=== PATIENT | female | born 1960 | race Caucasian/White ===

== ENCOUNTER → 2016-10-12 | Outpatient (CLI) | payer BC ==
--- NOTE | 2016-10-12 17:04 | RAD ---
DATE: 10/12/2016 EXAM: MAMMO LORI SCREENING BILATERAL HISTORY: Routine screening COMPARISON: 09/07/2015 This study was interpreted with the benefit of Computerized Aided Detection (CAD). The breast parenchyma is heterogeneously dense, which could reduce sensitivity of mammography. Breast parenchyma level C. FINDINGS: Routine 2-D and implant exclusion views of both breasts were obtained. 3-D implant exclusion tomosynthesis images were also obtained. The fibroglandular tissues in both breasts are largely unchanged. There is a small 5-6 mm nodular opacity noted far posteriorly in the midportion of the right breast on the implant exclusion cc view and the CC tomosynthesis image 35. This was not visible on the previous study, however, that may have been due to the fact that less of the posterior aspect of the breast was included on the prior study. No other new or enlarging breast densities are seen. There are capsular calcifications along the margins of the implants. No suspicious breast microcalcifications are seen. IMPRESSION: Small nodule in the posterior aspect of the mid right breast as described above. Sonographic evaluation is suggested. BI-RADS CATEGORY: 0 INCOMPLETE: NEEDS ADDITIONAL IMAGING EVALUATION AND/OR PRIOR MAMMOGRAMS FOR COMPARISON. RECOMMENDED FOLLOW-UP: ADD ADDITIONAL IMAGING PQRS compliance statement: Patient information was entered into a reminder system with a target due date for the next mammogram. Mammography is a sensitive method for finding small breast cancers, but it does not detect them all and is not a substitute for careful clinical examination. A negative mammogram does not negate a clinically suspicious finding and should not result in delay in biopsying a clinically suspicious abnormality. "Our facility is accredited by the [employer] Mammography Program."
== END | disposition home or self-care (01) ==
LOC: MAMMO 15:09
PROVIDERS: ATTEND Physician Assistant Medical
DX: Z12.31 Encounter for screening mammogram for malignant neoplasm of breast (principal); N63 Unspecified lump in breast; Z01.419 Encounter for gynecological examination (general) (routine) without abnormal findings
CPT/HCPCS: 77063; G0202; 77067

== ENCOUNTER → 2016-10-18 | Outpatient (CLI) | payer BC ==
--- NOTE | 2016-10-18 15:59 | RAD ---
EXAM: BREAST RIGHT HISTORY: Possible asymmetry within the right breast on screening examination. COMPARISON: Multiple comparisons including 10/12/2016 and 06/18/2013 Focused ultrasound images were obtained through the right breast. FINDINGS: Focused ultrasound was obtained through the right breast in order to attempt to localize the possible asymmetry seen on screening mammogram. Glandular tissue as well as fatty tissue and the patient's chest wall musculature is seen without a definite mass or fluid collection. IMPRESSION: No definite mass or drainable fluid collection is seen on focused ultrasound of right breast. Repeat breast deepthi synthesis could be obtained in 6 months to ensure no increase in the possible asymmetry seen within the right breast. This may have been partially visualized in 2013 but a follow-up could be helpful to ensure no growth. BI-RADS CATEGORY: 3 PROBABLE BENIGN-SHORT TERM F/U RECOMMENDED FOLLOW-UP: 6M 6 MONTH FOLLOW-UP PQRS compliance statement: Patient information was entered into a reminder system with a target due date for the next mammogram. Mammography is a sensitive method for finding small breast cancers, but it does not detect them all and is not a substitute for careful clinical examination. A negative mammogram does not negate a clinically suspicious finding and should not result in delay in biopsying a clinically suspicious abnormality. "Our facility is accredited by the [employer] Mammography Program."
== END | disposition home or self-care (01) ==
LOC: US 14:45
PROVIDERS: ATTEND Physician Assistant Medical
DX: R92.8 Other abnormal and inconclusive findings on diagnostic imaging of breast (principal)
CPT/HCPCS: 76641

== ENCOUNTER 2017-09-05 22:28 | Inpatient (IN) | payer BC ==
[~2017-09-05] VITALS: Ht 167.6 cm; Wt 88.0 kg
[2017-09-05] MEDS ORDERED: IV NORMAL SALINE 1,000ML 1,000 ML IV SCH (22:30)
--- NOTE | 2017-09-05 22:31 | ED.ADGEN ---
Past History Past Medical History: Hypertension, Other Past Surgical History: Other Adult General Chief Complaint Chief Complaint ".. I had some bad.. chest discomfort... dull here on Lt... I call the ambulance about 9:30. .. but I refused transport.. because I began to feel beter.. but my BP was 200's over 90.. but discomfort came back... so I came in...." I had Mitral prolapse... and did have a ASD and ASD repair as child... 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 who presents with above hx and complaints . Pt. rated the discomfort original as 10. Pt. does have hx of HTN. and Pigment Glaucoma . Pt. follows with Ricarda Liu. No recent changes in meds. Has not followed with Cardiology for years. Review of Systems Review of Systems Constitutional: Denies fever or chills [] Eyes: Denies change in visual acuity, redness, or eye pain [] HENT: Denies nasal congestion or sore throat [] Respiratory: Denies cough or shortness of breath [] Cardiovascular: No additional information not addressed in HPI [] GI: Denies abdominal pain, nausea, vomiting, bloody stools or diarrhea [] : Denies dysuria or hematuria [] Musculoskeletal: Denies back pain or joint pain [] Integument: Denies rash or skin lesions [] Neurologic: Denies headache, focal weakness or sensory changes [] Endocrine: Denies polyuria or polydipsia [] All other systems were reviewed and found to be within normal limits, except as documented in this note. Family History Family History Non-contributory Current Medications Current Medications Current Medications Medications (Trade) Dose Ordered Sig/Omaira Start Time Stop Time Status Last Admin Dose Admin Aspirin (Children'S Aspirin) 324 mg 1X ONCE 09/05/17 23:00 09/05/17 23:11 DC 09/05/17 23:27 324 MG Sodium Chloride 1,000 ml @ 100 mls/hr Q10H 09/05/17 22:30 09/06/17 08:29 09/05/17 23:32 100 MLS/HR Allergies Allergies Physical Exam Physical Exam Constitutional: Moderately acute distress, non-toxic appearance. [] HENT: Normocephalic, atraumatic, bilateral external ears normal, oropharynx moist, no oral exudates, nose normal. [] Eyes: PERRLA, EOMI, conjunctiva normal, no discharge. [] Neck: Normal range of motion, no tenderness, supple, no stridor. [] Cardiovascular:Heart rate regular rhythm, mitral murmur [] Lungs & Thorax: Bilateral breath sounds clear to auscultation []Old scar. Abdomen: Bowel sounds normal, soft, no tenderness, no masses, no pulsatile masses. [] Skin: Warm, dry, no erythema, no rash. [] Back: No tenderness, no CVA tenderness. [] Extremities: No tenderness, no cyanosis, no clubbing, ROM intact, no edema. [] No specific cording noted. Neurologic: Alert and oriented X 3, normal motor function, normal sensory function, no focal deficits noted. [] Psychologic: Affect anxious, judgement normal, mood normal. [] Current Patient Data Vital Signs Vital Signs Date Time Temp Pulse Resp B/P (MAP) Pulse Ox O2 Delivery O2 Flow Rate FiO2 09/05/17 22:33 98.5 64 20 100 Lab Results Laboratory Tests Test 09/05/17 22:45 09/05/17 22:55 Urine Collection Type Unknown Urine Color Yellow Urine Clarity Clear Urine pH 7.0 Urine Specific [place] 1.015 Urine Protein Neg (NEG-TRACE) Urine Glucose (UA) Neg mg/dL (NEG) Urine Ketones (Stick) Neg mg/dL (NEG) Urine Blood Small (NEG) Urine Nitrite Neg (NEG) Urine Bilirubin Neg (NEG) Urine Urobilinogen Dipstick 0.2 mg/dL (0.2 mg/dL) Urine Leukocyte Esterase Neg (NEG) Urine RBC 1-2 /HPF (0-2) Urine WBC Occ /HPF (0-4) Urine Squamous Epithelial Cells Occ /LPF Urine Bacteria 0 /HPF (0-FEW) Urine Opiates Screen Neg (NEG) Urine Methadone Screen Neg (NEG) Urine Barbiturates Neg (NEG) Urine Phencyclidine Screen Neg (NEG) Urine Amphetamine/Methamphetamine Neg (NEG) Urine Benzodiazepines Screen Neg (NEG) Urine Cocaine Screen Neg (NEG) Urine Cannabinoids Screen Neg (NEG) Urine Ethyl Alcohol Neg (NEG) White Blood Count 6.7 x10^3/uL (4.0-11.0) Red Blood Count 4.08 x10^6/uL (3.50-5.40) Hemoglobin 13.1 g/dL (12.0-15.5) Hematocrit 39.3 % (36.0-47.0) Mean Corpuscular Volume 96 fL (79-100) Mean Corpuscular Hemoglobin 32 pg (25-35) Mean Corpuscular Hemoglobin Concent 34 g/dL (31-37) Red Cell Distribution Width 13.0 % (11.5-14.5) Platelet Count 275 x10^3/uL (140-400) Neutrophils (%) (Auto) 53 % (31-73) Lymphocytes (%) (Auto) 37 % (24-48) Monocytes (%) (Auto) 8 % (0-9) Eosinophils (%) (Auto) 2 % (0-3) Basophils (%) (Auto) 0 % (0-3) Neutrophils # (Auto) 3.5 x10^3uL (1.8-7.7) Lymphocytes # (Auto) 2.5 x10^3/uL (1.0-4.8) Monocytes # (Auto) 0.5 x10^3/uL (0.0-1.1) Eosinophils # (Auto) 0.1 x10^3/uL (0.0-0.7) Basophils # (Auto) 0.0 x10^3/uL (0.0-0.2) Prothrombin Time 9.8 SEC (9.4-11.4) Prothrombin Time INR 1.0 (0.9-1.1) PTT 25 SEC (23-33) D-Dimer (Shaniqua) 0.64 mg/L (0.00-0.50) H Sodium Level 139 mmol/L (136-145) Potassium Level 4.2 mmol/L (3.5-5.1) Chloride Level 104 mmol/L (98-107) Carbon Dioxide Level 26 mmol/L (21-32) Anion Gap 9 (6-14) Blood Urea Nitrogen 15 mg/dL (7-20) Creatinine 0.7 mg/dL (0.6-1.0) Estimated GFR (Cockcroft-Gault) 86.2 Glucose Level 102 mg/dL (70-99) H Calcium Level 8.4 mg/dL (8.5-10.1) L Magnesium Level 2.2 mg/dL (1.8-2.4) Total Bilirubin 0.3 mg/dL (0.2-1.0) Direct Bilirubin < 0.1 mg/dL (0.0-0.2) Aspartate Amino Transferase (AST) 27 U/L (15-37) Alanine Aminotransferase (ALT) 21 U/L (14-59) Alkaline Phosphatase 85 U/L (46-116) Creatine Kinase 102 U/L (26-192) Creatine Kinase MB (Mass) 0.7 ng/mL (0.0-3.6) Creatine Kinase MB Relative Index 0.7 % (0-4) Troponin I Quantitative < 0.017 ng/mL (0-0.055) XA-Ndy-F-Type Natriuretic Peptide 423 pg/mL (0-124) H Total Protein 7.3 g/dL (6.4-8.2) Albumin 3.5 g/dL (3.4-5.0) Lipase 461 U/L (73-393) H EKG EKG My interpretation of EKG shows a sinus rhythm at 64. There is some nonspecific T -wave abnormalities. No findings of acute STEMI with contralateral changes.[] Radiology/Procedures Radiology/Procedures My interpretation of chest x-ray shows somewhat globular heart. But no obvious acute cardiopulmonary findings. No free air under the diaphragm.[] Course & Med Decision Making Course & Med Decision Making Pertinent Labs and Imaging studies reviewed. (See chart for details). Discussed presentation, testing and tx. plan with Dr. Padilla- will admit for further work up and cardiology consult. [] Final Impression Final Impression 1. Chest pain 2. Accelerated hypertension 3. History of mitral valve prolapse,ASD and VSD repairs.[] 4. Elevated lipase. 5. Elevated D-dimer Dragon Disclaimer Dragon Disclaimer This electronic medical record was generated, in whole or in part, using a voice recognition dictation system. RENAY RODARTE MD Sep 05, 2017 22:31
[2017-09-05] MEDS ORDERED: ASPIRIN 81 MG TAB.CHEW PO ONE (23:00)
[2017-09-05] MEDS ORDERED: NITROGLYCERIN OINT 1 GM PACKET. TP ONE (23:15)
[2017-09-05] MEDS ORDERED: ENOXAPARIN ** NOTE DOSE ** SYRINGE SQ ONE (23:15)
--- NOTE | 2017-09-05 23:25 | RAD ---
EXAM: CHEST 1 VIEW. HISTORY: Left chest pain. COMPARISON: May 21, 2007. FINDINGS: A frontal view of the chest is obtained. There are no confluent infiltrates. There is no pneumothorax or pleural effusion. The heart is not enlarged. IMPRESSION: 1. No confluent infiltrates. Electronically signed by: Brigitte Nova MD (09/05/2017 11:21 PM) [facility]
[2017-09-05 23:33] LABS: BASO % 0 % (0-3); EOS # 0.1 x10^3/uL (0.0-0.7); EOS % 2 % (0-3); HEMATOCRIT 39.3 % (36.0-47.0); HEMOGLOBIN 13.1 g/dL (12.0-15.5); LYMPH # 2.5 x10^3/uL (1.0-4.8); LYMPH % 37 % (24-48); MEAN CORPUSCULAR HEMOGLOBIN 32 pg (25-35); MEAN CORPUSCULAR HGB CONC 34 g/dL (31-37); MEAN CORPUSCULAR VOLUME 96 fL (79-100); MONO # 0.5 x10^3/uL (0.0-1.1); MONO % 8 % (0-9); NEUT # 3.5 x10^3uL (1.8-7.7); NEUT % 53 % (31-73); PLATELET COUNT 275 x10^3/uL (140-400); RED BLOOD COUNT 4.08 x10^6/uL (3.50-5.40); WHITE BLOOD COUNT 6.7 x10^3/uL (4.0-11.0)
[2017-09-05 23:44] LABS: BILIRUBIN,URINE NEG (NEG); CLARITY,URINE CLEAR; COLOR,URINE YELLOW; GLUCOSE,URINE NEG (NEG); NITRITE,URINE NEG (NEG); UROBILINOGEN,URINE 0.2 mg/dL (0.2 mg/dL)
[2017-09-05 23:45] LABS: BACTERIA,URINE 0 /HPF (0-FEW); SQUAMOUS EPITHELIAL CELL,UR OCC /LPF; WBC,URINE OCC /HPF (0-4)
[2017-09-05 23:54] LABS: AMPHETAMINE/METHAMPHETAMINE NEG (NEG); BARBITURATES NEG (NEG); BENZODIAZEPINES NEG (NEG); CANNABINOIDS NEG (NEG); COCAINE NEG (NEG); METHADONE NEG (NEG); OPIATES NEG (NEG); PHENCYCLIDINE NEG (NEG)
[2017-09-06] MEDS ORDERED: MORPHINE SULFATE 4 MG/ML DISP.SYRIN. IV ONE
[2017-09-06 00:03] LABS: ALBUMIN 3.5 g/dL (3.4-5.0); ALK PHOS 85 U/L (46-116); ALT (SGPT) 21 U/L (14-59); ANION GAP 9 (6-14); AST (SGOT) 27 U/L (15-37); BLOOD UREA NITROGEN 15 mg/dL (7-20); CALCIUM 8.4 mg/dL (8.5-10.1); CARBON DIOXIDE 26 mmol/L (21-32); CHLORIDE 104 mmol/L (98-107); CREATININE 0.7 mg/dL (0.6-1.0); GFR 86.2; GLUCOSE 102 mg/dL (70-99); LIPASE 461 U/L (73-393); MAGNESIUM 2.2 mg/dL (1.8-2.4); POTASSIUM 4.2 mmol/L (3.5-5.1); SODIUM 139 mmol/L (136-145); TOTAL BILIRUBIN 0.3 mg/dL (0.2-1.0); TOTAL PROTEIN 7.3 g/dL (6.4-8.2)
[2017-09-06 00:04] LABS: DIRECT BILIRUBIN < 0.1 mg/dL (0.0-0.2)
[2017-09-06] MEDS ORDERED: MORPHINE SULFATE 4 MG/ML DISP.SYRIN. ONE (00:04)
--- NOTE | 2017-09-06 00:28 | EKG ---
[address] [address] Test Date: 2017-09-05 Test Time: 22:37:47 Pat Name: KVNG DALY Department: Room: Gender: F [employer]: : 1960 Requested By: RENAY RODARTE Order Number: [id number] Reading MD: Measurements Intervals [place] Rate: 64 P: 90 MT: 152 QRS: 8 QRSD: 86 T: 52 QT: 400 QTc: 417 Interpretive Statements SINUS RHYTHM T ABNORMALITY IN HIGH LATERAL LEADS ABNORMAL ECG RI6.01 No previous ECG available for comparison
--- NOTE | 2017-09-06 01:00 | NUR ---
ADMISSION: The patient, KVNG DALY, 56 y/o, F admitted by ASHLIE WEEMS MD, was given written information regarding hospital policies, unit procedures and contact persons. Pt arrived to room 121 via gurney, accompanied by [facility], nursing sup, and . Pt able to ambulate from gurney to bed, steady gait noted. Dx:CP, accelerated HTN, elevated D-dimer, elevated lipase. Pt reports she was driving to work at approx. 2140 when she developed sudden onset of pain/pressure under left breast that radiates to LLQ of abdomen, was accompanied by nausea and increased salivation. She states that she called 911 and on scene her BP was severely elevated and she refused transport to ER, and that EMS recommended she go to the ER, so she came POV. Pt with Hx of mitral valve prolapse, ASD and VSD repairs as a child. Pt has not followed with a order detailer recently, but reports having an ECHO and stress test done approx. 5 years ago. Will consult [facility] cardiology in AM. Pt placed on telemetry, showing SR with HR in the 80's. BP stable. Pt denies any current pain or discomfort. Oriented to unit and room. POC discussed, patient and V/U. Call light in reach. Will monitor. Valuables were checked and logged. Left in room with patient.
[2017-09-06 01:05] VITALS: BP 121/65
[2017-09-06] MEDS ORDERED: MULT1TAB52 PO (01:57)
[2017-09-06] MEDS ORDERED: DOCO1CAP2 PO (01:57)
[2017-09-06] MEDS ORDERED: LATA2.5D3 OU (01:57)
[2017-09-06] MEDS ORDERED: ATEN50TA PO (01:57)
[2017-09-06] MEDS ORDERED: ASPI81TA50 PO (01:57)
[2017-09-06] MEDS: MORPHINE SULFATE 4 MG/ML DISP.SYRIN. IV PRN ×2 (04:03→20:33)
[2017-09-06 05:19] VITALS: BP 139/76
--- NOTE | 2017-09-06 05:24 | NUR ---
Pt awoke c/o nausea and LUQ pain. Began retching, clear emesis. Given prn zofran with minimal relief. Dr. Padilla notified of pt status, new orders received.
[2017-09-06] MEDS ORDERED: ONDANSETRON ODT 4 MG TAB.RAPDIS PO PRN (05:30)
[2017-09-06] MEDS ORDERED: PROMETHAZINE 12.5 MG in IV NORMAL SALINE 50ML 50 ML IV PRN (05:30)
[2017-09-06] MEDS ORDERED: IOHEXOL 300 MG/ML 75 ML VIAL. IV ONE (05:45)
[2017-09-06] MEDS ORDERED: CONTRAST GIVEN MC PRN (05:45)
[2017-09-06] MEDS: NITROGLYCERIN OINT 1 GM PACKET. TP SCH ×3 (05:53→20:34)
--- NOTE | 2017-09-06 06:15 | NUR ---
Cardiology consult called to Dr. St. L/M with answering service, awaiting call back.
--- NOTE | 2017-09-06 06:50 | RAD ---
Indication: Chest pressure. Elevated d-dimer. Upper abdominal pain with nausea and vomiting TECHNIQUE: CT angiogram chest and CT abdomen pelvis in portal venous phase. COMPARISON: None FINDINGS: CT chest: Diagnostic quality PE study. There are no central, segmental or subsegmental filling defects in the pulmonary arteries. Bilateral breast implants. Heart is normal in size. No pericardial or pleural effusion. No chest adenopathy. Lungs are clear. No suspicious bony lesions in the chest. CT abdomen pelvis: Liver, spleen, gallbladder, pancreas, adrenals are within normal limits. 1 cm low attenuating lesion is seen in the right kidney also seen on previous study from 2007 suggesting simple cyst. Obstructing 4 mm left proximal ureteral stone with mild hydroureteronephrosis. No enlarged retroperitoneal or pelvic adenopathy. No bowel obstruction. Normal appendix. Urinary bladder within normal limits. Anteverted uterus. No free pelvic fluid or ascites. No suspicious bony lesion. IMPRESSION: 1. No PE. No pneumonia. 2. Obstructing 4 mm stone in the left proximal ureter causing mild left-sided hydroureteronephrosis. Electronically signed by: Ho Sumner DO (09/06/2017 6:46 AM) [facility]
[2017-09-06] MEDS ORDERED: ASPIRIN 81 MG TAB.CHEW PO SCH (09:00)
[2017-09-06] MEDS ORDERED: ENOXAPARIN ** NOTE DOSE ** SYRINGE SQ SCH (09:00)
[2017-09-06] MEDS: FAMOTIDINE 20 MG TABLET PO SCH ×2 (09:06→20:33)
--- NOTE | 2017-09-06 10:12 | PDOC2 ---
CONSULT Date of Admission DATE: 09/06/17 TIME: 10:09 Reason for Consult: cp Problem List Problems Medical Problems: (1) Chest pain Status: Acute History of Present Illness Ms Burns is a 56 year old female who presented to the ED with complaints of chest pain. She reports that while driving to work last PM she began to have a feeling of abdominal "bloating". This was followed with epigastric pressure and left chest pressure below her breast. She reports excess salivation with nausea but no vomiting and finally a sharp left lower quadrant abdominal pain. She decided to go home and lay down but when the discomfort did not resolve, became uneasy and called EMS. EMS apparently examined her and found her blood pressure was >200 mmHg systolic and advised transport to the hospital. She declined but her convinced her to go to ED for evaluation anyway. She was driven in by her . She wan found to have no acute abnormalities on EKG and her initial cardiac enzymes were normal. She was also noted to have a 4mm obstructing left ureteral stone by CT. She was admitted for observation and consult was called for chest pain. She reports one additional episode of pain since admission with associated nausea and vomiting. She reports the discomfort was somewhat positional and improved with sitting upright and with walking around. She denies dyspnea, congestive symptoms or syncope. She does report occasional palpitations for which she takes Atenolol. She reports increased palpitations over the last day or so. She denies any limitations in her functional capacity. She reports occasional lightheadedness which is described as spinning with associated ringing in her ears. These symptoms are worsened with movement of her head and even with changing position from sitting to laying down. She denies any syncope, weakness, loss of motor function, visual changes or speech difficulties., Past Medical History ASD repair as a child, MVP, glaucoma, prior kidney stones, hypertension Past Surgical History ASD repair, breast implants Family History hypertension, diabetes, CAD, cancer Social History Non smoker, no significant ETOH, no illicit drugs Current Medications Current Medications Aspirin (Children'S Aspirin) 324 mg 1X ONCE PO Last administered on 09/05/17at 23:27; Start 09/05/17 at 23:00; Stop 09/05/17 at 23:11; Status DC Sodium Chloride 1,000 ml @ 100 mls/hr Q10H IV Last administered on 09/05/17at 23 :32; Start 09/05/17 at 22:30; Stop 09/06/17 at 08:29; Status DC Nitroglycerin (Nitro-Bid Oint) 1 inch 1X ONCE TP Last administered on at 23:29; Start 09/05/17 at 23:15; Stop 09/05/17 at 23:16; Status DC Enoxaparin Sodium (Lovenox 100mg Syringe) 90 mg 1X ONCE SQ Last administered on 09/05/17at 23:23; Start 09/05/17 at 23:15; Stop 09/05/17 at 23:16; Status DC Morphine Sulfate (Morphine 4mg Syringe) 2 mg 1X ONCE IV Last administered on at 00:08; Start 09/06/17 at 00:00; Stop 09/06/17 at 00:04; Status DC Morphine Sulfate (Morphine 4mg Syringe) 4 mg STK-MED ONCE .ROUTE ; Start at 00:04; Stop 09/06/17 at 00:05; Status DC Morphine Sulfate (Morphine 4mg Syringe) 2 mg PRN Q2HR PRN IV PAIN Last administered on 09/06/17at 04:03; Start 09/06/17 at 00:15; Stop 09/07/17 at 00:14 Enoxaparin Sodium (Lovenox 80mg Syringe) 90 mg BID SQ ; Start 09/06/17 at 09:00 Nitroglycerin (Nitro-Bid Oint) 1 inch Q8HRS TP ; Start 09/06/17 at 06:00 Aspirin (Children'S Aspirin) 81 mg DAILY PO Last administered on 09/06/17at 09:06 ; Start 09/06/17 at 09:00 Famotidine (Pepcid) 20 mg BID PO Last administered on 09/06/17at 09:06; Start 09/06/17 at 09:00 Ondansetron HCl (Zofran Odt) 4 mg PRN Q6HRS PRN PO NAUSEA/VOMITING Last administered on 09/06/17at 05:52; Start 09/06/17 at 05:30 Promethazine HCl 12.5 mg/Sodium Chloride 50.5 ml @ 101 mls/hr PRN Q6HRS PRN IV NAUSEA/VOMITING; Start 09/06/17 at 05:30 Iohexol (Omnipaque 300 Mg/ml) 75 ml 1X ONCE IV Last administered on 09/06/17at 06:01; Start 09/06/17 at 05:45; Stop 09/06/17 at 05:46; Status DC Info (Do NOT chart on this entry -- for MONITORING) 1 each PRN DAILY PRN MC SEE COMMENTS; Start 09/06/17 at 05:45; Stop 09/08/17 at 05:44 Active Scripts Active Reported Multivitamins (Multivitamin) 1 Each Tablet 1 Tab PO DAILY Latanoprost 2.5 Ml Drops 1 Drop OU HS Aspir-Low (Aspirin) 81 Mg Tablet.dr 81 Mg PO DAILY Fish Oil Concentrate Softgel (Docosahexanoic Acid/Epa) 1 Each Capsule 1 Cap PO BID Atenolol 50 Mg Tablet 50 Mg PO DAILY Allergies: Coded Allergies: No Known Drug Allergies (Unverified , 09/06/17) Review of System as per HPI or negative General: Alert, Oriented X3, Cooperative, No acute distress HEENT: Atraumatic, EOMI, Mucous membr. moist/pink, Other (No carotid bruits) Lungs: Clear to auscultation Heart: Regular rate, Normal S1, Normal S2, Other (no significant murmurs, no gallops, clicks or rubs) Abdomen: Normal bowel sounds, Soft Extremities: No clubbing, No cyanosis, No edema, Normal pulses Skin: No significant lesion Neuro: Normal speech, Strength at 5/5 X4 ext Psych/Mental Status: Mental status NL, Mood NL VITALS Vital Signs Date Time Temp Pulse Resp B/P (MAP) Pulse Ox O2 Delivery O2 Flow Rate FiO2 09/06/17 05:53 58 139/76 09/06/17 05:19 97.8 20 95 Room Air Labs Laboratory Tests Test 09/05/17 22:45 09/05/17 22:55 Urine Collection Type Unknown Urine Color Yellow Urine Clarity Clear Urine pH 7.0 Urine Specific [place] 1.015 Urine Protein Neg (NEG-TRACE) Urine Glucose (UA) Neg mg/dL (NEG) Urine Ketones (Stick) Neg mg/dL (NEG) Urine Blood Small (NEG) Urine Nitrite Neg (NEG) Urine Bilirubin Neg (NEG) Urine Urobilinogen Dipstick 0.2 mg/dL (0.2 mg/dL) Urine Leukocyte Esterase Neg (NEG) Urine RBC 1-2 /HPF (0-2) Urine WBC Occ /HPF (0-4) Urine Squamous Epithelial Cells Occ /LPF Urine Bacteria 0 /HPF (0-FEW) Urine Opiates Screen Neg (NEG) Urine Methadone Screen Neg (NEG) Urine Barbiturates Neg (NEG) Urine Phencyclidine Screen Neg (NEG) Urine Amphetamine/Methamphetamine Neg (NEG) Urine Benzodiazepines Screen Neg (NEG) Urine Cocaine Screen Neg (NEG) Urine Cannabinoids Screen Neg (NEG) Urine Ethyl Alcohol Neg (NEG) White Blood Count 6.7 x10^3/uL (4.0-11.0) Red Blood Count 4.08 x10^6/uL (3.50-5.40) Hemoglobin 13.1 g/dL (12.0-15.5) Hematocrit 39.3 % (36.0-47.0) Mean Corpuscular Volume 96 fL (79-100) Mean Corpuscular Hemoglobin 32 pg (25-35) Mean Corpuscular Hemoglobin Concent 34 g/dL (31-37) Red Cell Distribution Width 13.0 % (11.5-14.5) Platelet Count 275 x10^3/uL (140-400) Neutrophils (%) (Auto) 53 % (31-73) Lymphocytes (%) (Auto) 37 % (24-48) Monocytes (%) (Auto) 8 % (0-9) Eosinophils (%) (Auto) 2 % (0-3) Basophils (%) (Auto) 0 % (0-3) Neutrophils # (Auto) 3.5 x10^3uL (1.8-7.7) Lymphocytes # (Auto) 2.5 x10^3/uL (1.0-4.8) Monocytes # (Auto) 0.5 x10^3/uL (0.0-1.1) Eosinophils # (Auto) 0.1 x10^3/uL (0.0-0.7) Basophils # (Auto) 0.0 x10^3/uL (0.0-0.2) Prothrombin Time 9.8 SEC (9.4-11.4) Prothromb Time International Ratio 1.0 (0.9-1.1) Activated Partial Thromboplast Time 25 SEC (23-33) D-Dimer (Shaniqua) 0.64 mg/L (0.00-0.50) Sodium Level 139 mmol/L (136-145) Potassium Level 4.2 mmol/L (3.5-5.1) Chloride Level 104 mmol/L (98-107) Carbon Dioxide Level 26 mmol/L (21-32) Anion Gap 9 (6-14) Blood Urea Nitrogen 15 mg/dL (7-20) Creatinine 0.7 mg/dL (0.6-1.0) Estimated GFR (Cockcroft-Gault) 86.2 Glucose Level 102 mg/dL (70-99) Calcium Level 8.4 mg/dL (8.5-10.1) Magnesium Level 2.2 mg/dL (1.8-2.4) Total Bilirubin 0.3 mg/dL (0.2-1.0) Direct Bilirubin < 0.1 mg/dL (0.0-0.2) Aspartate Amino Transf (AST/SGOT) 27 U/L (15-37) Alanine Aminotransferase (ALT/SGPT) 21 U/L (14-59) Alkaline Phosphatase 85 U/L (46-116) Creatine Kinase 102 U/L (26-192) Creatine Kinase MB (Mass) 0.7 ng/mL (0.0-3.6) Creatine Kinase MB Relative Index 0.7 % (0-4) Troponin I Quantitative < 0.017 ng/mL (0-0.055) HF-Wcu-G-Type Natriuretic Peptide 423 pg/mL (0-124) Total Protein 7.3 g/dL (6.4-8.2) Albumin 3.5 g/dL (3.4-5.0) Lipase 461 U/L (73-393) Images EKG - sinus rhythm, non specific T abn. no acute ischemic changes. CXR - no acute abn CT - negative for PE Assessment/Plan 1. Chest pain - Initial CE negative, no acute ischemic EKG changes. Suggest check echo and repeat Candido. If no significant abnormalities could have MPI as outpatient. 2. Accelerated hypertension - now well controlled on current medical therapy. Elevation likely in part situational exacerbated by pain and anxiety. Await echo. 3. History of mitral valve prolapse,ASD and VSD repairs.[] Await echo. 4. Elevated D-dimer- CT negative for PE, venous duplex negative - per PCP 5. nephrolithiasis - per PCP DELLA WADSWORTH [employer] Sep 06, 2017 10:12
[2017-09-06 13:48] LABS: THYROID STIM HORMONE (TSH) 3.75 uIU/mL (0.358-3.740)
--- NOTE | 2017-09-06 13:52 | HP ---
ADMIT DATE: 09/06/2017 HISTORY OF PRESENT ILLNESS: The patient is a 56-year-old female patient, who came to the Emergency Room with a complaint of left-sided chest discomfort that was like retrosternal and below her left breast and also in the left upper extremity and left groin. She apparently called the ambulance about 9:30 in the evening, but refused to transport because she started feeling better and then that time her blood pressure was high at 200/90, but the discomfort came back and her brought her to the Emergency Room. She was extensively evaluated in the Emergency Room and has had lab work done, which showed that her serum lipase to be slightly elevated; however, her troponin was less than 0.017. Her D-dimer was slightly elevated at 0.64. The urine showed small amount of blood, but otherwise it was unremarkable and her toxic screen was negative, given the elevated D-dimer and also the fact that she has serum lipase was high. She underwent CT scan of the chest, abdomen and pelvis, which showed the patient has no evidence of pulmonary embolism or pneumonia; however, she has obstructing 4 mm stone in the left proximal ureter causing mild left-sided hydroureteronephrosis. The patient was admitted to do 2 more sets of cardiac enzyme and to consult the cardiology team. PAST MEDICAL HISTORY: Significant for hypertension, nephrolithiasis, osteoarthritis, and glaucoma. PAST SURGICAL HISTORY: Significant for atrial septal defect repair and colonoscopy. She apparently is known to have also mitral valve prolapse. ALLERGIES: She has no known drug allergies. MEDICATIONS: She is currently on following medications. She is on atenolol 50 mg once a day, aspirin 81 mg once a day, latanoprost 1 drop to both eyes at bedtime. She is on fish oil 1 capsule twice a day, multivitamin 1 tablet once a day. FAMILY HISTORY: She has 1 younger sister, who is alive. Her father still alive and has hypertension, diabetes, glaucoma and follicular lymphoma. Mother in her 50s because of COPD. SOCIAL HISTORY: She is , has 2 sons and 2 daughters. She never smoked, does not drink alcohol or use any recreational drugs. She works at [employer]. REVIEW OF SYSTEMS: The patient denied any blurring of vision, known to have glaucoma for which she is on latanoprost. Denied any cataract or macular degeneration. Denied any earache, tinnitus. She does have what seemed to be benign paroxysmal vertigo. Denied any nosebleeds, stuffy nose or postnasal drip. Denied any sore throat, sore tongue, toothache, hoarseness of voice or difficulty. Did have some nausea and vomited once this morning, but denied any hematemesis, melena or hematochezia. Denied any dysuria, frequency or hematuria. chest discomfort. PHYSICAL EXAMINATION: GENERAL: On arrival to the Emergency Room, she looked well and was clearly in no apparent respiratory distress, somewhat pale, but no jaundice, cyanosis, or thyromegaly. No jugular venous distension. No limb edema. VITAL SIGNS: Her heart rate was 64, blood pressure 150/76, temperature was 98.5, respiratory rate was 20, and oxygen saturation was 100% on room air. HEAD, EYES, EARS, NOSE AND THROAT: Showed normocephalic, atraumatic. NECK: Supple. HEART: Showed normal first and second sounds. No gallop, rub or murmur. CHEST: Clear to auscultation. No crepitation or rhonchi. ABDOMEN: Distended, soft, nontender. No guarding or rigidity. No organomegaly. All hernial orifice intact. Bowel sounds normal. NEUROLOGIC: She is awake, alert, responding appropriately. All cranial nerves intact. EXTREMITIES: She moves extremities without difficulty. She ambulates without assistance or assistive devices. LABORATORY DATA: In the Emergency Room showed white cell count of 6700, hemoglobin 13, hematocrit 39, MCV 96, and platelet count of 275,000. Her chemistry showed serum sodium 139, potassium 4.2, chloride 104, bicarbonate 26, anion gap of 9, BUN 15, creatinine 0.7, estimated GFR was 86 mL per minute. Her glucose was 102, calcium was 8.4, magnesium 2.2. Total bilirubin, AST, ALT, alkaline phosphatase were normal. Her first set of cardiac enzymes showed troponin to be less than 0.017. Beta natriuretic peptide was 123. Total protein was 7.3, albumin was 3.5. Her prothrombin time was 9.8, INR of 1, aPTT was 25 and D-dimer was 0.64. Urinalysis showed the urine was yellow, clear with a pH of 7, specific gravity 1.015. The urine was negative for protein, glucose and ketones. There was small amount of blood, negative for nitrite and leukocyte esterase. There are 1-2 rbc's, occasional wbc's and no bacteria. Her urine toxicology screen was essentially negative. ASSESSMENT AND PLAN: The patient was admitted to do 2 more sets of cardiac enzymes, to consult the cardiology team and also to arrange because of her serum lipase was elevated, arrangement has been made for her to have CT scan of the abdomen and pelvis as well as CT scan of the chest. IMPRESSION: In summary, the patient is a 56-year-old female patient, who was admitted with chest pain, accelerated hypertension, mitral valve prolapse, , elevated lipase, elevated D-dimer. She has history of glaucoma, hypertension, nephrolithiasis and osteoarthritis. ASHLIE WEEMS MD DR: SRIKANTH/lorena JOB#: [id number] / [id number]
[2017-09-06 14:02] VITALS: BP 117/65
--- NOTE | 2017-09-06 14:32 | CARD ---
MR#: [id number] Date of Study: 09/06/2017 Ordering Physician: DELLA WADSWORTH, Referring Physician: ASHLIE WEEMS Tech: TRACY Loo APPROVED REPORT EXAM: Two-dimensional and M-mode echocardiogram with Doppler and color Doppler. Other Information Quality : AverageHR: 75bpm Technically limited study due to breast implants. INDICATION Chest Pain Mitral Valve Prolapse 2D DIMENSIONS Left Atrium(2D)3.9 (1.6-4.0cm)IVSd1.1 (0.7-1.1cm) Aortic Root(2D)3.1 (2.0-3.7cm)LVDd4.9 (3.9-5.9cm) LVOT Diameter2.1 (1.8-2.4cm)PWd1.1 (0.7-1.1cm) LVDs3.2 (2.5-4.0cm)FS (%) 34.3 % SV72.1 mlLVEF(%)63.1 (>50%) Aortic Valve AoV Peak Willi.162.8cm/sAoV VTI34.5cm AO Peak GR.10.6mmHgLVOT Peak Willi.119.2cm/s LVOT VTI 25.15cmAO Mean GR.5mmHg DAVID (VMAX)2.75nz6SZG (VTI)2.58cm2 Mitral Valve MV E Wzkacrwr456.0cm/sMV DECEL ODBY382yo MV A Zeebdmfk705.8cm/sE/A Ratio1.1 Pulmonary Valve PV Peak Qoturqde714.8cm/sPV Peak Grad.5mmHg Tricuspid Valve TR P. Ikxoqypi487gj/sRAP QZHTAXZJ24alYj TR Peak Gr.37ayHoPEFM64phKw Pulmonary Vein S1 Mflmvxyz88.7cm/sD2 Finlplfe75.5cm/s LEFT VENTRICLE The left ventricle is normal size. There is normal left ventricular wall thickness. The left ventricu lar systolic function is normal and the ejection fraction is within normal range. EF 60% There is maddie ssly normal LV segmental wall motion. Technically difficult study. The left ventricular diastolic fun ction and filling is normal for age. RIGHT VENTRICLE The right ventricle is normal size. The right ventricle is borderline hypertrophied. The right ventri cular systolic function is normal. ATRIA The left atrium size is normal. The right atrium size is normal. The interatrial septum is intact wit h no evidence for an atrial septal defect or patent foramen ovale as noted on 2-D or Doppler imaging. AORTIC VALVE The aortic valve is thickened but opens well. Doppler and Color Flow revealed no significant aortic r egurgitation. There is no significant aortic valvular stenosis. There is no aortic valvular vegetatio n. MITRAL VALVE The mitral valve is mildly thickened. A mild mitral valve prolapse is present. There is no mitral alek ve stenosis. Doppler and Color Flow revealed no mitral valve regurgitation noted. TRICUSPID VALVE The tricuspid valve is not well visualized. Doppler and Color Flow revealed trace to mild tricuspid r egurgitation. There is moderate pulmonary hypertension. The PA pressure was estimated at 47 mmHg. The re is no tricuspid valve prolapse or vegetation. There is no tricuspid valve stenosis. PULMONIC VALVE The pulmonic valve is not well visualized. Doppler and Color Flow revealed no pulmonic valvular regur gitation. There is no pulmonic valvular stenosis. GREAT VESSELS The aortic root is normal in size. The IVC is dilated. The IVC collapses <50% with inspiration. PERICARDIAL EFFUSION There is no pleural effusion. There is no evidence of significant pericardial effusion. Critical Notification Critical Value: No <Conclusion> The left ventricular systolic function is normal and the ejection fraction is within normal range. EF 60% There is grossly normal LV segmental wall motion. Technically difficult study. Doppler and Color Flow revealed trace to mild tricuspid regurgitation. There is moderate pulmonary hy pertension. The PA pressure was estimated at 47 mmHg. Signed by : Vaughn Witt, Electronically Approved : 09/06/2017 14:31:33
--- NOTE | 2017-09-06 16:12 | RAD ---
Bilateral lower extremity venous ultrasound, 09/06/2017: History: Chest pain, elevated d-dimer Duplex evaluation of the deep veins in the lower extremities was performed including grayscale, color-flow and spectral Doppler analysis. The femoral and popliteal veins demonstrate normal compressibility and normal responses to distal augmentation maneuvers. Color imaging of those vessels shows no evidence of intraluminal clot. The visualized deep veins in both calves are patent. Incidental note is made of a probable small amount of fluid in the right hip joint. IMPRESSION: There is no sonographic evidence of deep vein thrombosis in either lower extremity. Electronically signed by: Elijah Monroy MD (09/06/2017 4:08 PM) [facility]
[2017-09-06 17:04] VITALS: BP 135/67
[2017-09-06] MEDS: OMEGA-3 FATTY ACIDS/FISH OIL 1,000 MG CAPSULE. PO SCH (20:33)
[2017-09-06 20:58] VITALS: BP 137/82
[2017-09-06] MEDS ORDERED: TAMSULOSIN 0.4 MG CAP.ER.24H. PO SCH (21:00)
[2017-09-06] MEDS ORDERED: LATANOPROST 0.005% OPHTH SOLUTION 2.5ML BOTTLE. OU SCH (21:00)
[2017-09-06 22:37] VITALS: BP 127/55
--- NOTE | 2017-09-06 22:48 | PN ---
DATE: 09/06/2017 SUBJECTIVE: The patient is resting slightly propped up in bed, comfortably in no apparent distress. She has no chest discomfort, no left lower quadrant pain. She has had no more nausea or vomiting. She did have a CT scan of the chest, abdomen and pelvis, which basically showed no pulmonary embolism, no pneumonia. She was found to have obstructing 4-mm stone in the left proximal ureter causing mild left-sided hydroureteronephrosis. The liver, spleen, gallbladder, pancreas and adrenals are within normal limits. OBJECTIVE: GENERAL: On examining her this morning, she looked well and was clearly in no apparent respiratory distress, slightly pale, but no jaundice, cyanosis or thyromegaly. No jugular venous distension. No lower limb edema. VITAL SIGNS: Her heart rate was 58, blood pressure was 139/76, temperature was 97.8, respiratory rate 20 and oxygen saturation was 95% on room air. HEAD, EYES, EARS, NOSE AND THROAT: Showed normocephalic, atraumatic. NECK: Supple. HEART: Showed normal first and second heart sounds. No gallop, rub or murmur. CHEST: Clear to auscultation. No crepitation or rhonchi. ABDOMEN: Distended, soft, nontender. No guarding or rigidity. No organomegaly. Hernial orifice intact. Bowel sounds normal. NEUROLOGIC: She is awake, alert, responding appropriately with all cranial nerves intact. She moves extremities without difficulty. She ambulates without assistance or assistive devices. Her intake and output are incompletely recorded. PLAN: We will check again her lipase and another set of cardiac enzyme, troponin. She is scheduled for an echocardiogram. We will continue with IV fluid and pain medication and I added also Flomax. She has no DVT. I will cut down the Lovenox to only prophylactic dose. ASHLIE WEEMS MD DR: SRIKANTH/lorena JOB#: [id number] / [id number]
[2017-09-07] MEDS: NITROGLYCERIN OINT 1 GM PACKET. TP SCH (05:05)
[2017-09-07] MEDS ORDERED: IV NORMAL SALINE 1,000ML 1,000 ML IV SCH ×2 (05:15)
[2017-09-07 05:48] VITALS: BP 138/76
[2017-09-07] MEDS ORDERED: KETOROLAC 30 MG/ML VIAL. IV ONE (06:00)
[2017-09-07] MEDS ORDERED: KETOROLAC 15 MG/ML VIAL. IV PRN (06:00)
[2017-09-07 06:20] LABS: BASO % 0 % (0-3); EOS # 0.1 x10^3/uL (0.0-0.7); EOS % 2 % (0-3); HEMATOCRIT 34.5 % (36.0-47.0); HEMOGLOBIN 11.7 g/dL (12.0-15.5); LYMPH % 35 % (24-48); MEAN CORPUSCULAR HEMOGLOBIN 32 pg (25-35); MEAN CORPUSCULAR HGB CONC 34 g/dL (31-37); MEAN CORPUSCULAR VOLUME 95 fL (79-100); MONO # 0.4 x10^3/uL (0.0-1.1); MONO % 7 % (0-9); NEUT # 3.2 x10^3uL (1.8-7.7); NEUT % 56 % (31-73); PLATELET COUNT 239 x10^3/uL (140-400); RED BLOOD COUNT 3.63 x10^6/uL (3.50-5.40); WHITE BLOOD COUNT 5.7 x10^3/uL (4.0-11.0)
[2017-09-07 06:47] LABS: ALBUMIN 2.8 g/dL (3.4-5.0); ALBUMIN/GLOBULIN RATIO 0.8 (1.0-1.7); CALCIUM 7.9 mg/dL (8.5-10.1); CREATININE 0.8 mg/dL (0.6-1.0); GFR 73.9; POTASSIUM 3.5 mmol/L (3.5-5.1); TOTAL BILIRUBIN 0.4 mg/dL (0.2-1.0); TOTAL PROTEIN 6.1 g/dL (6.4-8.2)
--- NOTE | 2017-09-07 08:52 | PDOC ---
PROGRESS NOTES Diagnosis Problem Problems Medical Problems: (1) Chest pain Status: Acute Assessment Problems Medical Problems: (1) Chest pain Status: Acute 1. Chest pain - CO ruled out. No acute ischemic EKG changes. Normal LVEF and wall motion by echo. Suspect referred pain secondary to obstructive ureteral stone, however as she has multiple risk factors would suggest outpatient stress test to rule out IHD. 2. Accelerated hypertension - Remains controlled on current medical therapy. No LVH by echo, normal diastolic function. 3. History of mitral valve prolapse,ASD and VSD repairs. - Mild MVP by echo. 4. Moderate PHTN - suggest outpatient sleep study 5. Elevated D-dimer- CT negative for PE, venous duplex negative - per PCP 6. nephrolithiasis - per PCP Subjective Feeling better, ready to go home. Objective Echo 09/07/17 The left ventricular systolic function is normal and the ejection fraction is within normal range. EF 60% There is grossly normal LV segmental wall motion. Technically difficult study. Doppler and Color Flow revealed trace to mild tricuspid regurgitation. There is moderate pulmonary hypertension. The PA pressure was estimated at 47 mmHg. Vital Signs Date Time Temp Pulse Resp B/P (MAP) Pulse Ox O2 Delivery O2 Flow Rate FiO2 09/07/17 07:30 Room Air 09/07/17 05:48 97.8 65 18 138/76 (96) 95 Intake and Output 09/07/17 07:00 Intake Total 2399 ml Output Total 800 ml Balance 1599 ml Intake Oral 930 ml IV Total 1469 ml Output Urine Total 800 ml # Voids 5 Abdomen: Normal bowel sounds, Soft, No tenderness Heart: Regular rate, Normal S1, Normal S2 Extremities: No cyanosis, Normal pulses General: Alert, Oriented X3, Cooperative HEENT: EOMI, Mucous membr. moist/pink Lungs: Clear to auscultation Neuro: Normal speech, Strength at 5/5 X4 ext Psych/Mental Status: Mental status NL, Mood NL Review of Relevant I have reviewed the following items karoline (where applicable) has been applied. Labs Laboratory Tests Test 09/05/17 22:45 09/05/17 22:55 09/06/17 14:04 09/07/17 06:04 Urine Collection Type Unknown Urine Color Yellow Urine Clarity Clear Urine pH 7.0 Urine Specific [place] 1.015 Urine Protein Neg (NEG-TRACE) Urine Glucose (UA) Neg mg/dL (NEG) Urine Ketones (Stick) Neg mg/dL (NEG) Urine Blood Small (NEG) Urine Nitrite Neg (NEG) Urine Bilirubin Neg (NEG) Urine Urobilinogen Dipstick 0.2 mg/dL (0.2 mg/dL) Urine Leukocyte Esterase Neg (NEG) Urine RBC 1-2 /HPF (0-2) Urine WBC Occ /HPF (0-4) Urine Squamous Epithelial Cells Occ /LPF Urine Bacteria 0 /HPF (0-FEW) Urine Opiates Screen Neg (NEG) Urine Methadone Screen Neg (NEG) Urine Barbiturates Neg (NEG) Urine Phencyclidine Screen Neg (NEG) Urine Amphetamine/Methamphetamine Neg (NEG) Urine Benzodiazepines Screen Neg (NEG) Urine Cocaine Screen Neg (NEG) Urine Cannabinoids Screen Neg (NEG) Urine Ethyl Alcohol Neg (NEG) White Blood Count 6.7 x10^3/uL (4.0-11.0) 5.7 x10^3/uL (4.0-11.0) Red Blood Count 4.08 x10^6/uL (3.50-5.40) 3.63 x10^6/uL (3.50-5.40) Hemoglobin 13.1 g/dL (12.0-15.5) 11.7 g/dL (12.0-15.5) Hematocrit 39.3 % (36.0-47.0) 34.5 % (36.0-47.0) Mean Corpuscular Volume 96 fL (79-100) 95 fL (79-100) Mean Corpuscular Hemoglobin 32 pg (25-35) 32 pg (25-35) Mean Corpuscular Hemoglobin Concent 34 g/dL (31-37) 34 g/dL (31-37) Red Cell Distribution Width 13.0 % (11.5-14.5) 13.0 % (11.5-14.5) Platelet Count 275 x10^3/uL (140-400) 239 x10^3/uL (140-400) Neutrophils (%) (Auto) 53 % (31-73) 56 % (31-73) Lymphocytes (%) (Auto) 37 % (24-48) 35 % (24-48) Monocytes (%) (Auto) 8 % (0-9) 7 % (0-9) Eosinophils (%) (Auto) 2 % (0-3) 2 % (0-3) Basophils (%) (Auto) 0 % (0-3) 0 % (0-3) Neutrophils # (Auto) 3.5 x10^3uL (1.8-7.7) 3.2 x10^3uL (1.8-7.7) Lymphocytes # (Auto) 2.5 x10^3/uL (1.0-4.8) 2.0 x10^3/uL (1.0-4.8) Monocytes # (Auto) 0.5 x10^3/uL (0.0-1.1) 0.4 x10^3/uL (0.0-1.1) Eosinophils # (Auto) 0.1 x10^3/uL (0.0-0.7) 0.1 x10^3/uL (0.0-0.7) Basophils # (Auto) 0.0 x10^3/uL (0.0-0.2) 0.0 x10^3/uL (0.0-0.2) Prothrombin Time 9.8 SEC (9.4-11.4) Prothromb Time International Ratio 1.0 (0.9-1.1) Activated Partial Thromboplast Time 25 SEC (23-33) D-Dimer (Shaniqua) 0.64 mg/L (0.00-0.50) Sodium Level 139 mmol/L (136-145) 143 mmol/L (136-145) Potassium Level 4.2 mmol/L (3.5-5.1) 3.5 mmol/L (3.5-5.1) Chloride Level 104 mmol/L (98-107) 108 mmol/L (98-107) Carbon Dioxide Level 26 mmol/L (21-32) 28 mmol/L (21-32) Anion Gap 9 (6-14) 7 (6-14) Blood Urea Nitrogen 15 mg/dL (7-20) 13 mg/dL (7-20) Creatinine 0.7 mg/dL (0.6-1.0) 0.8 mg/dL (0.6-1.0) Estimated GFR (Cockcroft-Gault) 86.2 73.9 Glucose Level 102 mg/dL (70-99) 110 mg/dL (70-99) Calcium Level 8.4 mg/dL (8.5-10.1) 7.9 mg/dL (8.5-10.1) Magnesium Level 2.2 mg/dL (1.8-2.4) Total Bilirubin 0.3 mg/dL (0.2-1.0) 0.4 mg/dL (0.2-1.0) Direct Bilirubin < 0.1 mg/dL (0.0-0.2) Aspartate Amino Transf (AST/SGOT) 27 U/L (15-37) 13 U/L (15-37) Alanine Aminotransferase (ALT/SGPT) 21 U/L (14-59) 17 U/L (14-59) Alkaline Phosphatase 85 U/L (46-116) 72 U/L (46-116) Creatine Kinase 102 U/L (26-192) Creatine Kinase MB (Mass) 0.7 ng/mL (0.0-3.6) Creatine Kinase MB Relative Index 0.7 % (0-4) Troponin I Quantitative < 0.017 ng/mL (0-0.055) < 0.017 ng/mL (0-0.055) YT-Iap-B-Type Natriuretic Peptide 423 pg/mL (0-124) Total Protein 7.3 g/dL (6.4-8.2) 6.1 g/dL (6.4-8.2) Albumin 3.5 g/dL (3.4-5.0) 2.8 g/dL (3.4-5.0) Triglycerides Level 80 mg/dL (0-150) Cholesterol Level 230 mg/dL (0-200) LDL Cholesterol, Calculated 159 mg/dL (0-100) VLDL Cholesterol, Calculated 16 mg/dL (0-40) Non-HDL Cholesterol Calculated 175 mg/dL (0-129) HDL Cholesterol 55 mg/dL (40-60) Cholesterol/HDL Ratio 4.0 Lipase 461 U/L (73-393) 121 U/L (73-393) 133 U/L (73-393) Thyroid Stimulating Hormone (TSH) 3.750 uIU/mL (0.358-3.740) BUN/Creatinine Ratio 16 (6-20) Albumin/Globulin Ratio 0.8 (1.0-1.7) Medications Current Medications Aspirin (Children'S Aspirin) 324 mg 1X ONCE PO Last administered on 09/05/17at 23:27; Start 09/05/17 at 23:00; Stop 09/05/17 at 23:11; Status DC Sodium Chloride 1,000 ml @ 100 mls/hr Q10H IV Last administered on 09/05/17at 23 :32; Start 09/05/17 at 22:30; Stop 09/06/17 at 08:29; Status DC Nitroglycerin (Nitro-Bid Oint) 1 inch 1X ONCE TP Last administered on at 23:29; Start 09/05/17 at 23:15; Stop 09/05/17 at 23:16; Status DC Enoxaparin Sodium (Lovenox 100mg Syringe) 90 mg 1X ONCE SQ Last administered on 09/05/17at 23:23; Start 09/05/17 at 23:15; Stop 09/05/17 at 23:16; Status DC Morphine Sulfate (Morphine 4mg Syringe) 2 mg 1X ONCE IV Last administered on at 00:08; Start 09/06/17 at 00:00; Stop 09/06/17 at 00:04; Status DC Morphine Sulfate (Morphine 4mg Syringe) 4 mg STK-MED ONCE .ROUTE ; Start at 00:04; Stop 09/06/17 at 00:05; Status DC Morphine Sulfate (Morphine 4mg Syringe) 2 mg PRN Q2HR PRN IV PAIN Last administered on 09/06/17at 20:33; Start 09/06/17 at 00:15; Stop 09/07/17 at 00:14; Status DC Enoxaparin Sodium (Lovenox 80mg Syringe) 90 mg BID SQ ; Start 09/06/17 at 09:00; Stop 09/06/17 at 13:25; Status DC Nitroglycerin (Nitro-Bid Oint) 1 inch Q8HRS TP ; Start 09/06/17 at 06:00 Aspirin (Children'S Aspirin) 81 mg DAILY PO Last administered on 09/06/17at 09:06 ; Start 09/06/17 at 09:00; Stop 09/06/17 at 13:35; Status DC Famotidine (Pepcid) 20 mg BID PO Last administered on 09/06/17at 20:33; Start 09/06/17 at 09:00 Ondansetron HCl (Zofran Odt) 4 mg PRN Q6HRS PRN PO NAUSEA/VOMITING Last administered on 09/06/17 05:52; Start 09/06/17 at 05:30 Promethazine HCl 12.5 mg/Sodium Chloride 50.5 ml @ 101 mls/hr PRN Q6HRS PRN IV NAUSEA/VOMITING; Start 09/06/17 at 05:30 Iohexol (Omnipaque 300 Mg/ml) 75 ml 1X ONCE IV Last administered on 09/06/17at 06:01; Start 09/06/17 at 05:45; Stop 09/06/17 at 05:46; Status DC Info (Do NOT chart on this entry -- for MONITORING) 1 each PRN DAILY PRN MC SEE COMMENTS; Start 09/06/17 at 05:45; Stop 09/08/17 at 05:44 Tamsulosin HCl (Flomax) 0.4 mg QHS PO Last administered on 09/06/17at 20:33; Start 09/06/17 at 21:00 Aspirin (Aspirin Enteric Coated) 81 mg DAILY PO ; Start 09/07/17 at 09:00 Fish Oil (Fish Oil) 1,000 mg BID PO Last administered on 09/06/17 20:33; Start 09/06/17 at 21:00 Latanoprost (Xalatan) 1 drop QHS OU Last administered on 09/06/17at 20:33; Start 09/06/17 at 21:00 Multivitamins/ Calcium (Thera-M Plus) 1 tab DAILY PO ; Start 09/07/17 at 09:00 Atenolol (Tenormin) 50 mg DAILY PO ; Start 09/07/17 at 09:00 Enoxaparin Sodium (Lovenox 40mg Syringe) 40 mg DAILY SQ ; Start 09/07/17 at 09:00 Sodium Chloride 1,000 ml @ 100 mls/hr Q10H IV Last administered on 09/07/17at 05 :35; Start 09/07/17 at 05:15 Sodium Chloride 1,000 ml @ 100 mls/hr Q10H IV ; Start 09/07/17 at 05:15; Stop at 05:34; Status DC Ketorolac Tromethamine (Toradol) 30 mg 1X ONCE IV Last administered on 6/8/ 18at 06:11; Start 09/07/17 at 06:00; Stop 09/07/17 at 06:01; Status DC Ketorolac Tromethamine (Toradol) 15 mg PRN Q6HRS PRN IV PAIN; Start 09/07/17 at 06:00; Stop 09/12/17 at 05:59 Active Scripts Active Reported Multivitamins (Multivitamin) 1 Each Tablet 1 Tab PO DAILY Latanoprost 2.5 Ml Drops 1 Drop OU HS Aspir-Low (Aspirin) 81 Mg Tablet.dr 81 Mg PO DAILY Fish Oil Concentrate Softgel (Docosahexanoic Acid/Epa) 1 Each Capsule 1 Cap PO BID Atenolol 50 Mg Tablet 50 Mg PO DAILY Vitals/I & O Vital Sign - Last 24 Hours 09/06/17 09/06/17 09/06/17 09/06/17 14:02 17:04 20:00 20:33 Temp 97.3 98.2 Pulse 69 65 Resp 18 20 18 B/P (MAP) 117/65 (82) 135/67 (89) Pulse Ox 94 96 96 O2 Delivery Room Air Room Air 09/06/17 09/06/17 09/06/17 09/07/17 20:34 20:58 22:37 05:48 Temp 98.3 98.2 97.8 Pulse 65 67 78 65 Resp 18 18 18 B/P (MAP) 135/67 137/82 (100) 127/55 (79) 138/76 (96) Pulse Ox 95 96 95 O2 Delivery Room Air Room Air Room Air 09/07/17 07:30 O2 Delivery Room Air Intake and Output 09/06/17 09/06/17 09/07/17 15:00 23:00 07:00 Intake Total 540 ml 1859 ml Output Total 800 ml Balance 540 ml 1059 ml DELLA WADSWORTH DIGITAL ASSET COORDINATOR Sep 07, 2017 08:52
--- NOTE | 2017-09-07 08:54 | RAD ---
PQRS Compliance Statement: One or more of the following individualized dose reduction techniques were utilized for this examination: 1. Automated exposure control 2. Adjustment of the mA and/or kV according to patient size 3. Use of iterative reconstruction technique CT abdomen/pelvis without contrast 09/07/2017 8:09 AM INDICATION: Left ureteral calculus. Left lower quadrant pain. COMPARISON: CT abdomen/pelvis September 06, 2017 TECHNIQUE: Multiple axial CT images of the abdomen and pelvis were obtained without intravenous contrast. Coronal and sagittal reformats are provided. FINDINGS: Bilateral breast prosthesis noted, similar to the prior examination. Lung bases are clear. Heart size is within normal limits. Evaluation of the solid abdominal viscera is limited by lack of intravenous contrast. The liver, spleen, bilateral adrenal glands, pancreas and gallbladder are normal in appearance. The abdominal aorta is normal in course and caliber. There are no pathologically enlarged lymph nodes in the abdomen and pelvis. There is no abdominal free fluid. There is no free intraperitoneal air. There is a persistent left ureteral calculus within the proximal one third of the left ureter measuring 4 mm. There is associated mild left hydronephrosis. No right-sided renal calculi are visualized. Calcifications identified within the pelvis on the gis developer examination correspond with phleboliths. Urinary bladder is within normal limits given degree of distention. Uterus and adnexa appear normal. Small and large bowel are normal in caliber. There is no evidence for bowel obstruction. There are no pericolonic inflammatory changes. Appendix is not definitively visualized on current examination. No suspicious osseous lesion is identified. IMPRESSION: Persistent 4 mm proximal left ureteral calculus with associated left-sided hydronephrosis. Electronically signed by: Angela Torres MD (09/07/2017 8:50 AM) [id number]
[2017-09-07] MEDS ORDERED: ATENOLOL 50 MG TABLET PO SCH (09:00)
[2017-09-07] MEDS ORDERED: ENOXAPARIN 40 MG/0.4 ML SYRINGE. SQ SCH (09:00)
[2017-09-07] MEDS ORDERED: ASPIRIN ENTERIC COATED 81 MG TABLET.DR. PO SCH (09:00)
[2017-09-07] MEDS ORDERED: MULTIVITAMIN with MINERAL TABLET. PO SCH (09:00)
[2017-09-07] MEDS: OMEGA-3 FATTY ACIDS/FISH OIL 1,000 MG CAPSULE. PO SCH (09:11)
[2017-09-07] MEDS: FAMOTIDINE 20 MG TABLET PO SCH (09:11)
[2017-09-07 11:03] VITALS: BP 120/72
--- NOTE | 2017-09-07 12:17 | NUR ---
pt is discharged home with self care at 1216 via ambulation via sylvia lozano. pt is in stable condition. pt has all belongings with her. pt received discharge instructions and prescriptions and stated she had no further questions for me. lipitor was called into pt pharmacy. pt was sent home with mae for use at home.
--- NOTE | 2017-09-07 17:19 | DS ---
DATE OF DISCHARGE: 09/07/2017 HOSPITAL COURSE: The patient is a 56-year-old female patient who came with the complaint of chest pain. She did have 3 sets of cardiac enzymes that ruled out myocardial infarction. She has had an echocardiogram done, which showed that her left ventricular systolic function is normal and ejection fraction is within normal range at 60% and there is grossly normal left ventricular segmental wall motion, technically difficult study. Doppler and color flow revealed [id number] tricuspid regurgitation. There is moderate pulmonary hypertension. Pulmonary artery pressure was estimated at 47. She was found to have a 4 mm obstructing stone in the left ureter associated with left-sided hydronephrosis. The patient has had no further episode of chest pain and her left renal colic pain has much improved and given the size of the stone and she has previously also passed the stone that are smaller in size, the patient opted to go home and try and pass the stone on her own with a clear instruction that she can come back to the Emergency Room if she has any symptoms. PHYSICAL EXAMINATION: GENERAL: On examining her before discharge, she looked well and was clearly in no apparent respiratory distress. She was slightly pale, no jaundice or cyanosis. No lymphadenopathy, no thyromegaly. No jugular venous distension. No lower limb edema. VITAL SIGNS: Her heart rate was 65, blood pressure 138/76, temperature was 98.1, respiratory rate 20, and oxygen saturation was 97%. HEAD, EYES, EARS, NOSE AND THROAT: Normocephalic, atraumatic. NECK: Supple. HEART: Showed normal first and second heart sounds with no gallop, rub or murmur. CHEST: Clear to auscultation. No crepitation or rhonchi. ABDOMEN: Distended, soft, nontender. No guarding or rigidity. No organomegaly. All hernial orifices intact. Bowel sounds normal. NEUROLOGIC: She was awake, alert, responding appropriately. Cranial nerves intact. EXTREMITIES: She moves extremities without difficulty. She ambulates without assistance or assistive devices. LABORATORY DATA: Her lab work this morning showed a white cell count 5700, hemoglobin 11.7, hematocrit 34.5, MCV 95 and a platelet count of 239,000 with normal manual differential. Her chemistry showed a serum sodium 143, potassium 3.5, chloride 108, bicarbonate 28, anion gap of 7, BUN 13, creatinine 0.8, estimated GFR was 74 mL per minute. Her glucose 110, calcium was 7.9. Total bilirubin, AST, ALT, alkaline phosphatase were normal. Her total protein was 6.1, albumin was 2.8, triglycerides to be 80, total cholesterol 230, LDL was 159, VLDL was 16, HDL cholesterol was 55 and the ratio was 4. Her TSH was slightly elevated at 3.75. Her lipase was normal. Her prothrombin time was 9.8, INR of 1, aPTT was 25 and D-dimer was slightly elevated at 0.64. Urinalysis was unremarkable. Toxic screen was negative. The patient has 2 CT scans of the abdomen, both without contrast and second one showed again persistent 4 mm proximal left ureteral calculus with associated left-sided hydronephrosis. DISCHARGE MEDICATIONS: The patient was discharged home to continue on her atenolol 50 mg once a day, latanoprost 1 drop to both eyes at bedtime, fish oil 1000 mg twice a day, famotidine 20 mg twice a day. The patient was given clear instruction to come to the Emergency Room if the pain is worse. The Cardiology team recommended an outpatient sleep study. ASHLIE WEEMS MD DR: SRIKANTH/lorena JOB#: [id number] / [id number]
== END 2017-09-07 12:15 | disposition home or self-care (01) | DRG 694 ==
LOC: ER 22:28 → 1 SOUTH 23:00
PROVIDERS: ADMIT Internal Medicine; ATTEND Internal Medicine
DX: N13.2 Hydronephrosis with renal and ureteral calculous obstruction (principal); I10 Essential (primary) hypertension; R74.8 Abnormal levels of other serum enzymes; R07.89 Other chest pain; F41.9 Anxiety disorder, unspecified; R79.1 Abnormal coagulation profile; I27.20 Pulmonary hypertension, unspecified; I07.1 Rheumatic tricuspid insufficiency; M19.90 Unspecified osteoarthritis, unspecified site; K11.7 Disturbances of salivary secretion; Z80.7 Family history of other malignant neoplasms of lymphoid, hematopoietic and related tissues; Z82.49 Family history of ischemic heart disease and other diseases of the circulatory system; Z82.5 Family history of asthma and other chronic lower respiratory diseases; Z83.3 Family history of diabetes mellitus; Z87.74 Personal history of (corrected) congenital malformations of heart and circulatory system; Z87.442 Personal history of urinary calculi; Z98.82 Breast implant status; Z79.899 Other long term (current) drug therapy
CPT/HCPCS: 36415; 71045; 71275; 73502; 74174; 74176; 80048; 80053; 80061; 80076; 80307; 81001; 82553; 83690; 83735; 83880; 84443; 84484; 85025; 85379; 85610; 85730; 93005; 93306; 93970; 96361; 96372; 96374; J1650; J1885; J2270; Q0162; Q9967; 99285-25; G0479; J7030

== ENCOUNTER → 2017-09-05 | Outpatient (CLI) | payer BC ==
[~2017-09-05] MED LIST: ASPI81TA50 PO; ATEN50TA PO; DOCO1CAP2 PO; LATA2.5D3 OU; MULT1TAB52 PO
--- NOTE | 2017-09-05 15:50 | RAD ---
Pelvis with right hip, 3 views, 09/05/2017: HISTORY: Right hip pain No fracture or dislocation is identified. The hip joint spaces are well-maintained. The periarticular soft tissues are unremarkable IMPRESSION: No significant abnormality is detected. Electronically signed by: Elijah Monroy MD (09/05/2017 3:46 PM) [facility]
== END | disposition home or self-care (01) ==
LOC: PMG 14:32
PROVIDERS: ATTEND Physician Assistant Medical
DX: M25.551 Pain in right hip (principal)
CPT/HCPCS: 73502

== ENCOUNTER → 2017-10-15 | Outpatient (CLI) | payer BC ==
[~2017-10-15] MED LIST changes: +ACET-704 PO; +IBUP800T19 PO; +TAMS0.4C97 PO
--- NOTE | 2017-10-15 14:44 | RAD ---
DATE: October 15, 2017 EXAM: MAMMO LORI SCREENING BILATERAL HISTORY: Routine screening. COMPARISON: October 12, 2016. September 07, 2015. TECHNIQUE: 2D digital CC and MLO routine and implant displaced views were obtained. 3D tomosynthesis imaging was performed in the implant displaced CC and MLO projections. This study was interpreted with the benefit of Computerized Aided Detection (CAD). FINDINGS: The breast parenchyma demonstrates scattered fibroglandular densities, category B. Implants are noted. There is a stable nodular asymmetry in the deep right breast directly back from the nipple line on CC view. There is no worrisome mass or area of architectural distortion. There are a few benign-appearing calcifications. IMPRESSION: Stable mammogram with benign findings. BI-RADS CATEGORY: 2 BENIGN FINDING RECOMMENDED FOLLOW-UP: 12M 12 MONTH FOLLOW-UP PQRS compliance statement: Patient information was entered into a reminder system with a target due date for the next mammogram. Mammography is a sensitive method for finding small breast cancers, but it does not detect them all and is not a substitute for careful clinical examination. A negative mammogram does not negate a clinically suspicious finding and should not result in delay in biopsying a clinically suspicious abnormality. "Our facility is accredited by the [employer] Mammography [employer]."
== END | disposition home or self-care (01) ==
LOC: MAMMO 13:35
PROVIDERS: ATTEND Physician Assistant Medical
DX: Z12.31 Encounter for screening mammogram for malignant neoplasm of breast (principal); Z79.899 Other long term (current) drug therapy; Z87.442 Personal history of urinary calculi; Z87.74 Personal history of (corrected) congenital malformations of heart and circulatory system; Z80.7 Family history of other malignant neoplasms of lymphoid, hematopoietic and related tissues; Z82.49 Family history of ischemic heart disease and other diseases of the circulatory system; Z83.3 Family history of diabetes mellitus; Z82.5 Family history of asthma and other chronic lower respiratory diseases
CPT/HCPCS: 77063; 77067

== ENCOUNTER 2017-10-16 23:55 | Emergency (ER) | payer BC ==
[~2017-10-16] VITALS: Ht 167.6 cm; Wt 81.6 kg
[~2017-10-16 23:55] MED LIST changes: -ACET-704 PO; -IBUP800T19 PO; -TAMS0.4C97 PO
[2017-10-17] MEDS ORDERED: MORPHINE SULFATE 4 MG/ML DISP.SYRIN. IV ONE (00:30)
[2017-10-17] MEDS ORDERED: ONDANSETRON PF 4 MG/2 ML VIAL. IV ONE (00:30)
[2017-10-17] MEDS ORDERED: IV NORMAL SALINE 1,000ML 1,000 ML IV SCH (00:30)
--- NOTE | 2017-10-17 00:32 | PHYS DOC ---
Past History Past Medical History: Glaucoma, Hypertension Past Surgical History: Other Smoking: Non-smoker Alcohol Use: None Drug Use: None Adult General Chief Complaint Chief Complaint: FLANK PAIN HPI HPI 56-year-old female patient complaining of sudden onset of left lower quadrant as a sharp pain with radiation to pelvic and left flank that started about 2 hours prior to arrival to ER. Patient complaining of nausea without vomiting. She and complaining of dysuria for several weeks. Patient states she thinks she has kidney stone because she had the same pain one month ago and seen in this emergency room and had CT abdomen and pelvis that showed 4 mm stone in the left side and she never passed the stone. Review of Systems Review of Systems Constitutional: Denies fever or chills [] Eyes: Denies change in visual acuity, redness, or eye pain [] HENT: Denies nasal congestion or sore throat [] Respiratory: Denies cough or shortness of breath [] Cardiovascular: No additional information not addressed in HPI [] GI: Reports abdominal pain, nausea, denies vomiting, bloody stools or diarrhea [ ] : Denies dysuria or hematuria [] Musculoskeletal: Denies back pain or joint pain [] Integument: Denies rash or skin lesions [] Neurologic: Denies headache, focal weakness or sensory changes [] Endocrine: Denies polyuria or polydipsia [] All other systems were reviewed and found to be within normal limits, except as documented in this note. Current Medications Current Medications Current Medications Medications (Trade) Dose Ordered Sig/Omaira Start Time Stop Time Status Last Admin Dose Admin Morphine Sulfate (Morphine 4mg Syringe) 4 mg 1X ONCE 10/17/17 00:30 10/17/17 00:31 Ondansetron HCl (Zofran) 4 mg 1X ONCE 10/17/17 00:30 10/17/17 00:31 Sodium Chloride 1,000 ml @ 1,000 mls/hr Q1H 10/17/17 00:30 10/17/17 01:29 Allergies Allergies Allergies Coded Allergies Type Severity Reaction Last Updated Verified No Known Drug Allergies 09/06/17 No Physical Exam Physical Exam Constitutional: Well developed, well nourished, mild distress, non-toxic appearance. [] HENT: Normocephalic, atraumatic, oropharynx moist, no oral exudates, nose normal. [] Eyes: PERRLA, EOMI, conjunctiva normal, no discharge. [] Neck: Normal range of motion, no tenderness, supple, no stridor. [] Cardiovascular:Heart rate regular rhythm, no murmur [] Lungs & Thorax: Bilateral breath sounds clear to auscultation [] Abdomen: Bowel sounds normal, soft, no tenderness, no masses, no pulsatile masses. [] Skin: Warm, dry, no erythema, no rash. [] Back: No tenderness, no CVA tenderness. [] Extremities: No tenderness, no cyanosis, no clubbing, ROM intact, no edema. [] Neurologic: Alert and oriented X 3, normal motor function, normal sensory function, no focal deficits noted. [] Psychologic: Affect normal, judgement normal, mood normal. [] Current Patient Data Vital Signs Vital Signs Date Time Temp Pulse Resp B/P (MAP) Pulse Ox O2 Delivery O2 Flow Rate FiO2 10/17/17 00:01 97.9 57 16 100 Room Air EKG EKG [] Radiology/Procedures Radiology/Procedures [][place] [id number] IMAGING REPORT Signed PATIENT: KVNG DALY ACCOUNT: [id number] : 1960 LOCATION: ER AGE: 56 SEX: F EXAM STATUS: REG ER ORD. PHYSICIAN: WENDY SANCHEZ MD REASON: Severe left flank and abdomen pain, nausea and vomiting. Hx:Yahaira PROCEDURE: CT ABDOMEN PELVIS WO CONTRAST EXAM: CT ABDOMEN/PELVIS WITHOUT CONTRAST. HISTORY: Left flank pain, nausea and vomiting. Renal stones. TECHNIQUE: Computed tomography of the abdomen and pelvis was performed without intravenous contrast. COMPARISON: September 07, 2017. FINDINGS: Lung windows through the visualized portions of the bases reveal mild atelectasis. Bilateral breast implants are noted. Bone windows reveal no suspicious lesions. A left distal ureteral calculus measures 5 mm. There is mild left hydronephrosis. There are no additional renal or ureteral calculi. Right renal cyst measures 1 cm and contains a small fluid fluid level indicating proteinaceous/hemorrhagic contents. The uterus and ovaries are unremarkable by noncontrast CT. The appendix is noninflamed. There is no small bowel obstruction. A small umbilical hernia contains only fat. A 4 mm hypoattenuating lesion in hepatic segment 4 is most likely a benign cyst. There are calcified granulomas in the liver and spleen. The adrenal glands, gallbladder and pancreas are unremarkable. 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 There are no pathologically enlarged lymph nodes. IMPRESSION: 1. 5 mm left distal ureteral calculus. Mild left hydronephrosis. *One or more of the following individualized dose reduction techniques were utilized for this examination: 1. Automated exposure control. 2. Adjustment of the mA and/or kV according to patient size. 3. Use of iterative reconstruction technique. Electronically signed by: Brigitte Nova MD (10/17/2017 2:20 AM) [facility] [id number] DICTATED AND SIGNED BY: MARIA LUISA NOVA MD DATE: 10/17/17 0124 CC: WENDY SANCHEZ MD; CORNELIUS MORALES ~ Course & Med Decision Making Course & Med Decision Making Pertinent Labs and Imaging studies reviewed. (See chart for details) Evaluation of patient in ER showed 56-year-old female patient with complaining of left flank and left lower quadrant pain for the last couple hours with nausea. Patient had history of recent kidney stone without recalling passing a stone. Patient treated with IV fluid and Zofran and morphine in ER and felt better. EKG showed 5 mm left ureteral stone and patient instructed to follow-up with urologist. [] Dragon Disclaimer Dragon Disclaimer This electronic medical record was generated, in whole or in part, using a voice recognition dictation system. Departure Departure: Impression: Primary Impression: Renal colic on left side Additional Impression: Ureterolithiasis Disposition: 01 HOME, SELF-CARE Condition: IMPROVED Referrals: CORNELIUS MORALES (PCP) BERNA BECERRA Patient Instructions: Diet for Kidney Stones, Kidney Stones Additional Instructions: Drink plenty of liquids Follow-up with your primary care physician in 3-5 days Return to ER if not getting better Follow-up with urologist in one or 2 days Strain all of your urine Scripts Acetaminophen With Codeine (TYLENOL WITH CODEINE #3 TABLET) 1 Each Tablet 1 TAB PO Q6HRS, #20 TAB Prov: WENDY SANCHEZ MD 10/17/17 Ibuprofen (IBUPROFEN) 800 Mg Tablet 1 TAB PO TID, #30 TAB Prov: WENDY SANCHEZ MD 10/17/17 Tamsulosin Hcl (FLOMAX) 0.4 Mg Cap.er.24h 1 CAP PO DAILY, #14 CAP 1 Refill Prov: WENDY SANCHEZ MD 10/17/17 Problem Qualifiers WENDY SANCHEZ MD Oct 17, 2017 00:32
[2017-10-17 00:35] LABS: BASO # 0.1 x10^3/uL (0.0-0.2); BASO % 1 % (0-3); EOS # 0.1 x10^3/uL (0.0-0.7); EOS % 2 % (0-3); HEMATOCRIT 38.9 % (36.0-47.0); HEMOGLOBIN 13.1 g/dL (12.0-15.5); LYMPH # 2.9 x10^3/uL (1.0-4.8); LYMPH % 36 % (24-48); MEAN CORPUSCULAR HEMOGLOBIN 32 pg (25-35); MEAN CORPUSCULAR HGB CONC 34 g/dL (31-37); MEAN CORPUSCULAR VOLUME 96 fL (79-100); MONO # 0.6 x10^3/uL (0.0-1.1); MONO % 8 % (0-9); NEUT # 4.3 x10^3uL (1.8-7.7); NEUT % 54 % (31-73); PLATELET COUNT 254 x10^3/uL (140-400); RED BLOOD COUNT 4.06 x10^6/uL (3.50-5.40); RED CELL DISTRIBUTION WIDTH 13.2 % (11.5-14.5)
[2017-10-17 00:40] LABS: CLARITY,URINE HAZY
[2017-10-17 00:41] LABS: BILIRUBIN,URINE NEG (NEG); COLOR,URINE ORANGE
[2017-10-17 00:42] LABS: BACTERIA,URINE FEW /HPF (0-FEW); WBC,URINE 0 /HPF (0-4)
[2017-10-17 01:13] LABS: ALBUMIN 3.4 g/dL (3.4-5.0); CALCIUM 8.6 mg/dL (8.5-10.1); CREATININE 0.9 mg/dL (0.6-1.0); GFR 64.5; POTASSIUM 3.7 mmol/L (3.5-5.1); TOTAL BILIRUBIN 0.3 mg/dL (0.2-1.0); TOTAL PROTEIN 6.8 g/dL (6.4-8.2)
--- NOTE | 2017-10-17 02:24 | RAD ---
EXAM: CT ABDOMEN/PELVIS WITHOUT CONTRAST. HISTORY: Left flank pain, nausea and vomiting. Renal stones. TECHNIQUE: Computed tomography of the abdomen and pelvis was performed without intravenous contrast. COMPARISON: September 07, 2017. FINDINGS: Lung windows through the visualized portions of the bases reveal mild atelectasis. Bilateral breast implants are noted. Bone windows reveal no suspicious lesions. A left distal ureteral calculus measures 5 mm. There is mild left hydronephrosis. There are no additional renal or ureteral calculi. Right renal cyst measures 1 cm and contains a small fluid fluid level indicating proteinaceous/hemorrhagic contents. The uterus and ovaries are unremarkable by noncontrast CT. The appendix is noninflamed. There is no small bowel obstruction. A small umbilical hernia contains only fat. A 4 mm hypoattenuating lesion in hepatic segment 4 is most likely a benign cyst. There are calcified granulomas in the liver and spleen. The adrenal glands, gallbladder and pancreas are unremarkable. 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 There are no pathologically enlarged lymph nodes. IMPRESSION: 1. 5 mm left distal ureteral calculus. Mild left hydronephrosis. *One or more of the following individualized dose reduction techniques were utilized for this examination: 1. Automated exposure control. 2. Adjustment of the mA and/or kV according to patient size. 3. Use of iterative reconstruction technique. Electronically signed by: Brigitte Nova MD (10/17/2017 2:20 AM) [id number]
[2017-10-17] MEDS ORDERED: ACET-704 PO (02:31)
[2017-10-17] MEDS ORDERED: TAMS0.4C97 PO (02:31)
[2017-10-17] MEDS ORDERED: IBUP800T19 PO (02:31)
[2017-10-17 02:43] VITALS: BP 144/65
[2017-10-17] MEDS ORDERED: IBUPROFEN 600 MG TABLET. PO ONE (02:45)
[2017-10-17] MEDS ORDERED: ACETAMINOPHEN/CODEINE 300/30MG 4TABLET STARTPACK. PO ONE (02:45)
[2017-10-17] MEDS ORDERED: TAMSULOSIN 0.4 MG CAP.ER.24H. PO ONE (02:45)
== END 2017-10-17 02:54 | disposition home or self-care (01) ==
LOC: ER 23:55
DX: N20.2 Calculus of kidney with calculus of ureter (principal); I10 Essential (primary) hypertension
CPT/HCPCS: 36415; 74176; 80053; 81001; 83690; 85025; 96374; 96375; 99285; J2270; J2405; 96361; J7030

== ENCOUNTER → 2018-03-14 | Outpatient (CLI) | payer BC ==
[~2018-03-14] MED LIST changes: +ACET-704 PO; +IBUP800T19 PO; +TAMS0.4C97 PO
--- NOTE | 2018-03-14 16:26 | RAD ---
Bone Densitometry History: screen, ov failure Findings: Bone Densitometry was performed with dual photon absorption of the lumbar spine and right proximal femur. Lumbar Spine: Bone density is 1.280 g/cm2 for L1-L4. T-score is 0.8. Z-score is 1.3. Right femoral neck: Bone density is 0.891 g/cm2. T-score is -1.1. Z-score is -0.3. IMPRESSION: 1. Mild osteopenia of the right femoral neck. 2. Normal bone mineral density of the lumbar spine. World Health Organization definition of osteoporosis and osteopenia for women: normal equals T score at or above -1.0 standard deviations; osteopenia equals T score between -1.0 and -2.5 standard deviations; osteoporosis equals T score at or below -2.5 standard deviations. Electronically signed by: Gaurav Levy MD (03/14/2018 4:22 PM) [id number]
== END | disposition home or self-care (01) ==
LOC: DXRAD 11:26
PROVIDERS: ATTEND Physician Assistant Medical
DX: Z13.820 Encounter for screening for osteoporosis (principal); M85.88 Other specified disorders of bone density and structure, other site
CPT/HCPCS: 77080

== ENCOUNTER → 2019-02-19 | Outpatient (CLI) | payer BC ==
--- NOTE | 2019-02-21 11:07 | RAD ---
DATE: 02/19/2019. EXAM: MAMMO LORI SCREENING BILATERAL. HISTORY: Routine mammographic screening. COMPARISON: 10/15/2017. This study was interpreted with the benefit of Computerized Aided Detection (CAD). FINDINGS: Breast Density: SCATTERED The breast parenchyma shows scattered fibroglandular densities. Breast parenchyma level B.. Bilateral subpectoral implants demonstrate evidence of extracapsular rupture inferiorly, stable. Small obscured nodules bilaterally are stable. Scattered calcifications are benign. There are no suspicious masses, microcalcifications or architectural distortion. BI-RADS CATEGORY: 2 BENIGN FINDING(S). RECOMMENDED FOLLOW-UP: 12M 12 MONTH FOLLOW-UP. PQRS compliance statement: Patient information was entered into a reminder system with a target due date 02/20/2020 for the next mammogram. Mammography is a sensitive method for finding small breast cancers, but it does not detect them all and is not a substitute for careful clinical examination. A negative mammogram does not negate a clinically suspicious finding and should not result in delay in biopsying a clinically suspicious abnormality. "Our facility is accredited by the [employer] Mammography Program."
== END | disposition home or self-care (01) ==
LOC: MAMMO 13:53
PROVIDERS: ATTEND Physician Assistant Medical
DX: Z12.31 Encounter for screening mammogram for malignant neoplasm of breast (principal); N64.89 Other specified disorders of breast; N63.20 Unspecified lump in the left breast, unspecified quadrant; N63.10 Unspecified lump in the right breast, unspecified quadrant
CPT/HCPCS: 77063; 77067

== ENCOUNTER → 2020-02-23 | Outpatient (CLI) | payer BC ==
[~2020-02-23] MED LIST changes: +MULT-445 PO; -MULT1TAB52 PO
--- NOTE | 2020-02-23 16:19 | RAD ---
DATE: 02/23/2020 2:10 PM EXAM: MAMMO LORI SCREENING BILATERAL HISTORY: Screening COMPARISON: 02/19/2019 Bilateral CC and MLO views of the breasts were performed. Implant displaced CC and MLO views were also obtained. Bilateral breast tomosynthesis was performed in implant displaced CC and MLO projections. This study was interpreted with the benefit of Computerized Aided Detection (CAD). FINDINGS: Breast Density: SCATTERED The breast parenchyma shows scattered fibroglandular densities. Breast parenchyma level B Subpectoral silicone implants are redemonstrated with evidence of capsular bulging bilaterally, left greater than right. No suspicious masses, microcalcifications or architectural distortion is present to suggest malignancy in either breast. The visualized axillae are unremarkable. IMPRESSION: No mammographic evidence of malignancy. BI-RADS CATEGORY: 1 NEGATIVE RECOMMENDED FOLLOW-UP: 12M 12 MONTH FOLLOW-UP Annual screening mammography is recommended, unless clinically indicated sooner based on symptoms or change in physical exam. PQRS compliance statement: Patient information was entered into a reminder system with a target due date for the next mammogram. Mammography is a sensitive method for finding small breast cancers, but it does not detect them all and is not a substitute for careful clinical examination. A negative mammogram does not negate a clinically suspicious finding and should not result in delay in biopsying a clinically suspicious abnormality. "Our facility is accredited by the [employer] Mammography [employer]."
== END ==
LOC: MAMMO 13:57
PROVIDERS: ATTEND Physician Assistant Medical
DX: Z12.31 Encounter for screening mammogram for malignant neoplasm of breast (principal)
CPT/HCPCS: 77063; 77067

== ENCOUNTER → 2021-02-23 | Outpatient (CLI) | payer BC ==
--- NOTE | 2021-02-25 09:21 | RAD ---
DATE: 02/23/2021 2:00 PM EXAM: MG 2D BILAT SCREENING HISTORY: Routine screening .No personal or family history of breast cancer. COMPARISON: Multiple priors dating back 10/12/2016 Bilateral CC and MLO views of the breasts were performed. Bilateral breast tomosynthesis was performe d in CC and MLO projections. Implant and implant displaced views were obtained. This study was interpreted with the benefit of Computerized Aided Detection (CAD). FINDINGS: Breast Density: HETERO The breast parenchyma Is heterogeneously dense, which could reduce sensitivit y of mammography. Breast parenchyma level C No suspicious masses, microcalcifications or architectural distortion is present to suggest malignanc y in either breast. The visualized axillae are unremarkable. IMPRESSION: No mammographic evidence of malignancy. BI-RADS CATEGORY: 2 BENIGN FINDING(S) RECOMMENDED FOLLOW-UP: Annual screening mammography is recommended, unless clinically indicated soone r based on symptoms or change in physical exam. PQRS compliance statement: Patient information was entered into a reminder system with a target due d ate 02/25/2022 for the next mammogram. Mammography is a sensitive method for finding small breast cancers, but it does not detect them all a nd is not a substitute for careful clinical examination. A negative mammogram does not negate a clin ically suspicious finding and should not result in delay in biopsying a clinically suspicious abnorma lity. "Our facility is accredited by the [employer] Mammography [employer]." Electronically signed by: Richard Elizabeth DO (02/25/2021 9:18 AM) [id number]
== END ==
LOC: MAMMO 13:51
PROVIDERS: ATTEND Physician Assistant Medical
DX: Z12.31 Encounter for screening mammogram for malignant neoplasm of breast (principal)
CPT/HCPCS: 77067